=== PATIENT | female | born 1980 | race Caucasian/White ===

== ENCOUNTER 2016-06-14 10:34 | Inpatient (IN) | payer OTHER ==
--- NOTE | 2016-06-14 17:39 | HP ---
ETHEL RIVERO : 1980 DATE OF ADMISSION: June 17, 2016 ADMISSION DIAGNOSIS: Post dates for induction of labor. HISTORY OF PRESENT ILLNESS: Ethel Rivero is a 36-year-old, 3, para 2, 0/0/2, who has an estimated date of delivery of June 10, 2016 based on an early ultrasound at approximately 7 1/2 weeks gestation. The patient is therefore thought to be at 41 weeks gestation on June 17, 2016. She is requesting induction of labor. She mentions that with her last two pregnancies she also had to be induced post dates. Each time she did very well with the induction. She did have an epidural for pain management and had normal vaginal births. She is having some increased cramping in these last few weeks but has not had any bleeding, no bloody show. She has also noticed some increased swelling in her face and hands as well as in her lower legs. She feels that it is time to proceed with an induction of labor. Risks and possible complications have been discussed, and the patient wishes to proceed. COURSE: Ethel has been followed since the end of October in this . She chose not to do any genetics. Her other testing has all been normal and reassuring. She is A positive with a negative antibody screen. She had a one-hour glucose challenge test of 141. It was decided to do a three hour test and this came back normal except for the three hour test but does not qualify for true gestational diabetes. The patient has been watching her carbohydrate intake. She has had a total weight gain of approximately 20 pounds in this . She has never had gestational diabetes in the past. Her babies have been normal size. There is no real family history of diabetes either. Patient has had normal blood pressures throughout the , no significant proteinuria, no glucosuria. There has been a regular increase in the fundal height, and the estimated weight currently is approximately 7.5 pounds. Baby has been in a cephalic lie for many weeks now, and the head does seem to be coming lower into the pelvis. PAST MEDICAL HISTORY: Patient denies any major medical problems. Generally she is very healthy. She does stay active and eat a healthy, well balanced diet. She has occasionally had some mild anemia. She does have some varicose veins but has not had any specific complications from these. She occasionally will have some headaches. FAMILY HISTORY: Is significant for breast cancer on her mother's side of the family. There is also a paternal aunt with ovarian cancer. No other major medical problems. SOCIAL HISTORY: The patient does not smoke, drink or use recreational drugs. The patient is in a stable, mutually monogamous relationship. Her is named, Dean, and he works as a plant operations manager. He is present and supportive. PAST SURGICAL HISTORY: She has not had any past surgeries. REVIEW OF SYSTEMS: Patient denies any significant problems lately except she has had more fluid retention. She has not had any infections, no upper respiratory infection. She did get the flu shot and the t-DAP during this . She is planning to breastfeed. PHYSICAL EXAM: VITAL SIGNS: Blood pressure was 100/60, pulse and respirations normal. Weight 178 pounds. GENERAL: Ethel is a pleasant, verbal, healthy woman appearing younger than her stated age. LUNGS: Clear to auscultation bilaterally. No costovertebral angle tenderness. HEART: Regular rate and rhythm. ABDOMEN: Gravid with an estimated weight of approximately 7.5 pounds. Baby is in a cephalic lie with back to the maternal right. heart tones are easily heard around 140 beats per minute. PELVIC: On pelvic exam, the pelvis is thought to be adequate for delivery of this baby. The cervix is somewhat posterior, soft, perhaps 1 cm dilated, 50% effaced. Quite stretchy. The vertex is loosely applied at a -3 station. IMPRESSION: Ethel is a healthy 36-year-old having her third child. She is requesting induction of labor. She is being admitted on the morning of June 17, 2016 for this induction unless she goes into labor prior to that.
[2016-06-17] MEDS ORDERED: MISOPROSTOL 25 MCG TABLET SL SCH (06:51)
[2016-06-17] MEDS ORDERED: IV START KIT ONE (07:20)
[2016-06-17] MEDS ORDERED: MINERAL OIL 25 ML BOT ONE (07:21)
[2016-06-17] MEDS ORDERED: OXYTOCIN 10 UNITS/ML VIAL ONE (07:21)
[2016-06-17] MEDS ORDERED: LACTATED RINGERS 1,000 ML ONE (07:21)
[2016-06-17] MEDS ORDERED: PUMP TUBING ONE (07:21)
[2016-06-17] MEDS ORDERED: LIDOCAINE Viscous 2% 15 ML UDCUP ONE (07:21)
[2016-06-17] MEDS ORDERED: LIDOCAINE 1% (PRES FREE) 30 ML VIAL ONE (07:21)
[2016-06-17] MEDS ORDERED: OXYTOCIN IN LR 500 ML IV ONE ×2 (07:22→09:11)
[2016-06-17 08:24] LABS: HEMATOCRIT 36.6 % (37.0-47.0); MEAN CELL VOLUME 93.1 fl (81.0-99.0); MEAN CORPUSCULAR HEMOGLOBIN 30.5 pg (27.0-31.0); MEAN CORPUSCULAR HGB CONC 32.8 g/dl (33.0-37.0); RED CELL DISTRIBUTION WIDTH 14.5 % (11.5-14.5)
[2016-06-17] MEDS: MISOPROSTOL 25 MCG TABLET VG SCH ×2 (08:25→12:52)
[2016-06-17 08:59] VITALS: BMI 31.5
[2016-06-17 09:17] LABS: ALB/GLOB RATIO 1.1 (>1.0); ALBUMIN 3.1 gm/dL (3.5-5.7); CALCIUM 8.5 mg/dL (8.6-10.3)
[2016-06-17] MEDS ORDERED: MISOPROSTOL 25 MCG TABLET VG SCH (10:00)
[2016-06-17] MEDS: LACTATED RINGERS 1,000 ML IV SCH (10:48)
[2016-06-17 11:29] LABS: A1C-GLYCOHEMOGLOBIN 0.5 g/dl; HEMOGLOBIN-GLYCO 16.2 g/dl
--- NOTE | 2016-06-17 14:02 | PDOC36 ---
Provider Note Note: ob note: patient received first misoprostil around 9am. cervix 1/50%/vtx -4.
[2016-06-17] MEDS ORDERED: OXYTOCIN IN LR 500 ML IV PRN (21:21)
[2016-06-17] MEDS: OXYTOCIN IN LR 500 ML IV PRN (21:55)
[2016-06-17] MEDS ORDERED: ZOLPIDEM TARTRATE 5 MG TABLET PO ONE (22:00)
[2016-06-18] MEDS ORDERED: ACETAMINOPHEN 500 MG TABLET PO ONE (02:08)
[2016-06-18] MEDS: LACTATED RINGERS 1,000 ML IV SCH (02:14)
[2016-06-18] MEDS: OXYTOCIN IN LR 500 ML IV PRN (03:52)
[2016-06-18] MEDS ORDERED: EPIDURAL PUMP SET ONE (03:59)
[2016-06-18] MEDS ORDERED: FENTANYL/ROPIVACAINE EPIDURAL 0 ML EP ONE (03:59)
[2016-06-18] MEDS ORDERED: FENTANYL 100 MCG/2 ML VIAL ONE (04:23)
[2016-06-18] MEDS ORDERED: LIDOCAINE 2% (PRES FREE) 5 ML VIAL ONE (04:24)
[2016-06-18] MEDS ORDERED: EPIDURAL PROCEDURE TRAY ONE (04:24)
[2016-06-18] MEDS ORDERED: OXYCODONE/ACETAMINOPHEN 5/325 MG TABLET PO PRN (05:07)
[2016-06-18] MEDS ORDERED: LANOLIN 50 APPLIC/7G TUBE TP PRN (05:07)
[2016-06-18] MEDS ORDERED: MAGNESIUM HYDROXIDE 30 ML UDCUP PO PRN (05:07)
[2016-06-18] MEDS ORDERED: IBUPROFEN 800 MG TABLET PO PRN (05:07)
[2016-06-18] MEDS ORDERED: SENNOSIDES 8.6 MG TABLET PO PRN (05:07)
[2016-06-18] MEDS ORDERED: BENZOCAINE/MENTHOL 60 APPLIC/BOT TP PRN (05:07)
--- NOTE | 2016-06-18 05:07 | PCMDEL ---
Delivery Note - Labor 1st stage (hr/min):: 1hr 01min 2nd stage (hr/min):: 7min 3rd stage (hr/min):: 7min Total (hr/min):: 1hr 15min Pushed (hr/min):: 7min - Delivery Delivery (Date): 06/18/16 Delivery (Time): 04:41 Gender: Female Presentation: Cephalic Position: OA Umbilical Cord: 3 Vessel Delayed Cord Clamping:: > 3 min 1 Minute Total: 8 5 Minute Total: 9 Placenta:: intact EBL:: 100cc Perineum:: intact, 2 superficial labial tears Suture:: 3-0 chromic Anesthesia/Meds:: epidural Length ROM:: 1hr 01 min Comments:: delivery note: patient fully dilated, +1 station, after epidural placed and was involuntarily pushing. pushed effectively, live baby girl delivered from roxane to oa position with loose nuchal cord reduced after delivery of head. easy delivery of shoulders and body. baby cried spontaneously, then placed on mother' s abdomen. delayed cord clamping, then father of baby cut cord. two superficial lacerations on right and left labia repaired with interrupted sutures of 3-0 chomic material. placenta delivered intact, cervix intact, perineum intact, rectal negative. sponge, instrument and needle count correct.
[2016-06-19 05:40] LABS: HEMATOCRIT 37.1 % (37.0-47.0); HEMOGLOBIN 12.1 gm/l (12.0-16.0)
[2016-06-19 07:52] VITALS: BP 103/62
--- NOTE | 2016-06-19 09:28 | PDOC44 ---
- Subjective Day: 1 Reports Pain Tolerable, Reports , Reports Lochia Light, Reports Tolerating Regular Diet, Denies Nausea, Denies Vomiting, Denies Fever - Objective Temp Pulse Resp BP Pulse Ox 98.2 F 72 18 103/62 06/19/16 07:36 06/19/16 07:36 06/19/16 07:36 06/19/16 07:36 Lab Results 06/19/16 05:15 Hgb 12.1 Hct 37.1 Current Medications Generic Name Dose Route Start Last Admin Trade Name Freq PRN Reason Stop Dose Admin Benzocaine/Menthol 1 applic 06/18/16 05:07 Dermoplast TP PRN PRN Patient Comfort Emollient Ointment 1 applic 06/18/16 05:07 Lgq-I-Ttumia TP PRN PRN sore nipples Ibuprofen 800 mg 06/18/16 05:07 Motrin PO Q8H PRN Pain (Mild) Magnesium Hydroxide 30 ml 06/18/16 05:07 Milk Of Magnesia PO BEDTIME PRN Constipation Oxycodone/Acetaminophen 1 - 2 tab 06/18/16 05:07 Percocet 5/325 PO Q4H PRN Pain (Moderate) Senna 17.2 mg 06/18/16 05:07 Senokot PO BEDTIME PRN Comfort Sodium Chloride 10 ml 06/18/16 05:07 Normal Saline 10ml Flush IV PRN PRN IV Flush Sodium Chloride 10 ml 06/18/16 09:00 Normal Saline 10ml Flush IV Q8HR GT - Physical Exam Fundus: Firm, At Umbilicus Abdomen: No Tenderness, No Distention Disposition: Stable, Anticipate DC to Home (desires d/c today. rx motrin; f/u with Dr. Lyon.)
== END 2016-06-19 11:54 | disposition home or self-care (01) | DRG 775 ==
LOC: EDSTATUS 20:15 → FBC 06-17 06:40
PROVIDERS: ADMIT Obstetrics & Gynecology; ATTEND Obstetrics & Gynecology
PROC: 10E0XZZ Delivery of Products of Conception, External Approach (ICD-10-PCS; principal; 2016-06-18)
PROC: 0HQ9XZZ Repair Perineum Skin, External Approach (ICD-10-PCS; 2016-06-18)
PROC: 00HU33Z Insertion of Infusion Device into Spinal Canal, Percutaneous Approach (ICD-10-PCS; 2016-06-18)
DX: O48.0 Post-term pregnancy (principal); O99.354 Diseases of the nervous system complicating childbirth; O69.81X0 Labor and delivery complicated by cord around neck, without compression, not applicable or unspecified; O70.0 First degree perineal laceration during delivery; O87.4 Varicose veins of lower extremity in the puerperium; R51 Headache; Z86.2 Personal history of diseases of the blood and blood-forming organs and certain disorders involving the immune mechanism; Z3A.41 41 weeks gestation of pregnancy